=== PATIENT | female | born 1985 | race Caucasian/White ===

== ENCOUNTER 2022-04-16 08:35 | Emergency (ER) | payer OTHER ==
[2022-04-16 09:58] LABS: HEMOGLOBIN 13.2 gm/dl (12.3-15.3); RED BLOOD COUNT 3.96 M/UL (4.00-5.10); WHITE BLOOD COUNT 11.9 K/UL (4.5-11.0)
[2022-04-16 10:24] LABS: BUN/CREATININE RATIO 26 (0-10)
[2022-04-16] MEDS ORDERED: IBUPROFEN600 MG PO (11:07)
== END 2022-04-16 11:20 | disposition home or self-care (01) ==
LOC: ER1 08:35
PROVIDERS: Physician Assistant Medical
DX: S80.01XA Contusion of right knee, initial encounter (principal); R10.9 Unspecified abdominal pain; R10.819 Abdominal tenderness, unspecified site; M54.50 Low back pain, unspecified; E11.9 Type 2 diabetes mellitus without complications; E78.5 Hyperlipidemia, unspecified; I10 Essential (primary) hypertension; Z86.73 Personal history of transient ischemic attack (TIA), and cerebral infarction without residual deficits; W19.XXXA Unspecified fall, initial encounter
CPT/HCPCS: 71101; 73562; 80053; 81001; 85025; 93005; 96374; 99284; J1885

== ENCOUNTER 2022-04-19 10:16 | Emergency (ER) | payer OTHER ==
[~2022-04-19 10:16] MED LIST: IBUPROFEN600 MG PO
[2022-04-19] MEDS ORDERED: NATROBA120 ML TP (11:40)
== END 2022-04-19 11:54 | disposition home or self-care (01) ==
LOC: ER1 10:16
DX: B85.0 Pediculosis due to Pediculus humanus capitis (principal); Z88.8 Allergy status to other drugs, medicaments and biological substances
CPT/HCPCS: 99282